=== PATIENT | male | born 1995 | race African-American/Black ===

== ENCOUNTER 2018-12-09 20:55 | Emergency (ER) | payer BC ==
[~2018-12-09] VITALS: Ht 180.3 cm; Wt 74.1 kg
[2018-12-09] MEDS ORDERED: AMOX500T2 PO (21:04)
[2018-12-09] MEDS ORDERED: MOTR200T44 PO (21:04)
[2018-12-09] MEDS ORDERED: NORCO 5/325MG TABLET (BULK FOR ED) PO ONE (21:45)
[2018-12-09] MEDS ORDERED: NORCO, ANEXSIA 5/325MG TABLET (HYDROcodone/ACETAMINOPHEN) PO ONE (21:45)
[2018-12-09 22:02] VITALS: BP 135/81
== END 2018-12-09 22:11 | disposition home or self-care (01) ==
LOC: M ED 20:55
DX: K08.89 Other specified disorders of teeth and supporting structures (principal)